=== PATIENT | female | born 1960 | race Caucasian/White ===

== ENCOUNTER → 2018-08-09 | Outpatient (CLI) | payer OTHER ==
[~2018-08-09] MED LIST: BASAGLAR K100 UNIT/1 SUBQ; CIPRO500 MG PO; FLAGYL500 MG PO; JANUVIA100 MG PO; LIPITOR 20 MG T20 M1 PO; NORCO 5-325 TA1 EACH PO; NOVOLOG100 UNIT/1 SUBQ; OMEPRAZOLE20 M1 PO; PROPRANOLOL 20M20 M1 PO; TRAMADOL 50 MG50 MG PO
--- NOTE | 2018-08-10 19:00 | SLEEP ---
[address] [address] SLEEP STUDY REPORT Name: TERRI FISCHER Room: [facility]#: [id number] Admission: 08/09/18 Attend Phys: Chirag Dent Discharge: Date of : 56 Report #: [id number] THIS REPORT FOR: //name// CC: Alicia Pillai DO This study has been reviewed in its entirety by a board certified sleep specialist DATE OF SERVICE: 08/09/2018 ATTENDING PHYSICIAN: Dr. Alicia Pillai. The patient is 58 years old who weighs 170 pounds and is 65 inches tall with a BMI of 28.3. The patient's Pomona score was 13. The patient had a previous home sleep study in 2017 and had mild OUMOU. An in-lab sleep study was ordered by primary care physician. During the night study, the patient spent 445 minutes in bed and slept for 360 minutes with a sleep efficiency of 81%. Sleep latency was 7.8 minutes with a REM latency of 82.3 minutes. Overall, sleep architecture showed normal stage I and stage II sleep, increased slow wave sleep, which was 35% of the total sleep time and normal REM sleep. During the night of the study, the patient had 1 obstructive apnea, no mixed or central apneas. There were 35 hypopneas. The patient's apnea hypopnea index was 6 per hour with a REM index of 5.2 per hour. The patient's supine AHI was 6.3 per hour. Review of nocturnal oximetry study revealed an average oxygen saturation of 94% with a lowest of 84%. 0.6 minutes were spent in oxygen saturation of less than 90%. EKG monitoring revealed normal sinus rhythm. Average heart rate was 60 beats per minute with a maximum of 76 beats per minute. PLMS were seen at an index of 60 per hour and 5.7 per hour caused EEG arousals. Due to low AHI, the patient did not meet the split night criteria for CPAP initiation. IMPRESSION: 1. Mild sleep apnea-hypopnea syndrome with an apnea-hypopnea index of 6 per hour. 2. No clinically significant nocturnal hypoxia. 3. Severe periodic limb movements in sleep at an index of 60 per hour and 5.7 [place] [address] SLEEP STUDY REPORT Name: TERRI FISCHER Room: [facility]#: [id number] Admission: 08/09/18 Attend Phys: Chirag Dent Discharge: Date of : 56 Report #: [id number] per hour caused EEG arousals. RECOMMENDATIONS: 1. The patient did not meet the criteria for CPAP initiation due to low AHI. The patient is clinically symptomatic with an Pomona score of 13. I would recommend treating the patient's sleep apnea with either oral appliance as recommended by the dentist versus a trial of CPAP titration. 2. Weight loss is advised and this can be the initial form of treatment. 3. Avoid PBX MANAGER depressants. 4. Cautioned regarding driving until symptoms of sleep apnea resolve with the above recommendations. 5. The patient should also be further evaluated for symptoms of restless legs during the day. <ELECTRONICALLY SIGNED> By: Parth Tidwell MD 08/10/18 1900 1554 1759Ahavre de grace Dmitry Tidwell MD /nt
== END ==
LOC: M.SLEEPLAB 07-09 20:00
DX: G47.34 Idiopathic sleep related nonobstructive alveolar hypoventilation (principal); E11.9 Type 2 diabetes mellitus without complications; K74.60 Unspecified cirrhosis of liver; Z79.4 Long term (current) use of insulin

== ENCOUNTER 2018-09-07 15:04 | Emergency (ER) | payer OTHER ==
[~2018-09-07] VITALS: Ht 162.6 cm; Wt 81.7 kg
[2018-09-07] MEDS ORDERED: JANUVIA100 MG PO (15:20)
[2018-09-07] MEDS ORDERED: NOVOLOG100 UNIT/1 SUBQ (15:20)
[2018-09-07] MEDS ORDERED: OMEPRAZOLE20 M1 PO (15:20)
[2018-09-07] MEDS ORDERED: BASAGLAR K100 UNIT/1 SUBQ (15:21)
[2018-09-07] MEDS ORDERED: PROPRANOLOL 20M20 M1 PO (15:21)
[2018-09-07] MEDS ORDERED: LIPITOR 20 MG T20 M1 PO (15:21)
[2018-09-07] MEDS ORDERED: TRAMADOL 50 MG50 MG PO (15:21)
[2018-09-07 15:58] LABS: ABSOLUTE BASOPHILS 0.1 thou/uL (0.0-0.2); ABSOLUTE EOSINOPHILS 0.1 thou/uL (0.0-0.7); ABSOLUTE LYMPHOCYTES 2.8 thou/uL (0.8-5.3); ABSOLUTE MONOCYTES 0.7 thou/uL (0.0-1.2); ABSOLUTE NEUTROPHILS 6.6 thou/uL (1.6-8.1); BASOPHILS 1.2 %; EOSINOPHILS 1.1 %; HEMATOCRIT 40.6 % (37.0-47.0); HEMOGLOBIN 13.7 gm/dL (12.0-15.0); LYMPHOCYTES 26.9 %; MCH 31.1 pg (26.0-34.0); MCHC 33.8 g/dL (28.0-37.0); MCV 92.1 fL (80.0-100.0); MONOCYTES 6.9 %; MPV 8.2 fl. (7.2-11.1); NUCLEATED RBCS 0 /100WBC; PLATELET COUNT* 214 thou/uL (150-400); POLYS 63.9 %; RDW-CV 13.2 % (10.5-14.5); WBC 10.3 thou/uL (4.0-11.0)
[2018-09-07 16:05] LABS: CALCIUM 8.8 mg/dL (8.5-10.1); CREATININE 0.7 mg/dL (0.6-1.3); POTASSIUM 3.7 mmol/L (3.5-5.1)
[2018-09-07 16:07] LABS: URINE BILIRUBIN NEGATIVE (Negative); URINE BLOOD NEGATIVE (Negative); URINE CLARITY CLEAR; URINE COLOR YELLOW; URINE GLUCOSE-RANDOM TRACE (Negative); URINE KETONES NEGATIVE (Negative); URINE LEUKOCYTES-REFLEX NEGATIVE (Negative); URINE NITRITE-REFLEX NEGATIVE (Negative); URINE PROTEIN NEGATIVE (Negative); URINE UROBILINOGEN 0.2 E.U./dl (0.2-1.0)
[2018-09-07 16:10] LABS: ALBUMIN 3.2 g/dL (3.4-5.0); TOTAL BILIRUBIN 0.6 mg/dL (<0.1-1.0); TOTAL PROTEIN 7.7 g/dL (6.4-8.2)
[2018-09-07] MEDS ORDERED: FLAGYL500 MG PO (17:30)
[2018-09-07] MEDS ORDERED: NORCO 5-325 TA1 EACH PO (17:30)
[2018-09-07] MEDS ORDERED: CIPRO500 MG PO (17:30)
[2018-09-07 17:50] VITALS: BP 125/84
== END 2018-09-07 17:53 | disposition home or self-care (01) ==
LOC: M.ERS 15:04
PROVIDERS: Physician Assistant
DX: K52.9 Noninfective gastroenteritis and colitis, unspecified (principal); E11.9 Type 2 diabetes mellitus without complications; K74.60 Unspecified cirrhosis of liver; Z79.4 Long term (current) use of insulin

== ENCOUNTER → 2018-12-05 | Outpatient (CLI) | payer BC | LOC: M.CT 10:28 | DX: K57.30 Diverticulosis of large intestine without perforation or abscess without bleeding (principal); R16.1 Splenomegaly, not elsewhere classified; R19.5 Other fecal abnormalities; I70.0 Atherosclerosis of aorta; Z90.49 Acquired absence of other specified parts of digestive tract ==

== ENCOUNTER → 2019-08-03 | Outpatient (CLI) | payer BC ==
[~2019-08-03] MED LIST changes: +HUMALOG100 UNIT/1 SUBQ; +HYDROCODON-ACE1 EAC7 PO; +LIPITOR10 MG PO; +OMEPRAZOLE40 MG PO; +REGLAN 5 MG TAB5 MG PO; +REQUIP 1 MG TABL1 M1 PO; +TOUJEO SOL300 UNIT/1 SUBQ
== END ==
LOC: M.ULTRA 09:46
DX: M79.662 Pain in left lower leg (principal); M79.89 Other specified soft tissue disorders

== ENCOUNTER → 2019-09-01 | Outpatient (CLI) | payer BC | LOC: M.MRI 15:57 | DX: S83.241A Other tear of medial meniscus, current injury, right knee, initial encounter (principal); X58.XXXA Exposure to other specified factors, initial encounter; Y93.89 Activity, other specified; Y92.89 Other specified places as the place of occurrence of the external cause; Y99.8 Other external cause status ==

== ENCOUNTER → 2019-09-14 | Outpatient (CLI) | payer BC | LOC: M.MRI 16:58 | DX: M25.511 Pain in right shoulder (principal); G89.29 Other chronic pain ==

== ENCOUNTER → 2019-09-15 | Day surgery (SDC) | payer BC ==
[2019-09-15 10:56] LABS: HEMATOCRIT 38.5 % (37.0-47.0); HEMOGLOBIN 13.4 gm/dL (12.0-15.0); MCH 31.9 pg (26.0-34.0); MCHC 34.8 g/dL (28.0-37.0); MCV 91.6 fL (80.0-100.0); MPV 8.5 fl. (7.2-11.1); RBC 4.21 mil/uL (4.20-5.00); RDW-CV 13.1 % (10.5-14.5); WBC 7.6 thou/uL (4.0-11.0)
[2019-09-15 11:14] LABS: CALCIUM 8.5 mg/dL (8.5-10.1); CREATININE 0.6 mg/dL (0.6-1.3); POTASSIUM 3.5 mmol/L (3.5-5.1)
[2019-09-15 11:19] LABS: TOTAL BILIRUBIN 0.7 mg/dL (<0.1-1.0); TOTAL PROTEIN 7.1 g/dL (6.4-8.2)
--- NOTE | 2019-09-15 15:52 | EKG ---
[place] [address] ELECTROCARDIOGRAM REPORT Name: TERRI FISCHER Room: [facility]#: [id number] Admission: 09/15/19 Attend Phys: Tex Mccarty DO Discharge: Date of : 56 Report #: [id number] THIS REPORT FOR: //name// [facility] Test Date: 2019-09-15 Test Time: 10:27:00 Pat Name: TERRI FISCHER Department: Room: Gender: F Machine Cell Tuber: : 1960 Requested By: Tex Mccarty Order Number: [id number] Reading MD: Ghassan Yepez Measurements Intervals [place] Rate: 63 P: 41 W[place]: 142 QRS: 6 QRSD: 102 T: 3 QT: 453 QTc: 464 Interpretive Statements Sinus rhythm Inferior infarct, old No previous ECG available for comparison Electronically Signed On 09-15-2019 15:52:24 LOG CARRIER OPERATOR by Ghassan Yepez [email or web address] <ELECTRONICALLY SIGNED> By: Ghassan Yepez MD, [facility] 09/15/19 1552 1027 1027 Ghassan Yepez MD, FACC /EPI
--- NOTE | 2019-09-26 12:03 | OP ---
[address] [address] OPERATIVE REPORT Name: TERRI FISCHER Room: [facility]#: [id number] Admission: 09/15/19 Attend Phys: Tex Mccarty DO Discharge: Date of : 56 Report #: [id number] THIS REPORT FOR: //name// CC: Tex Mccarty Alicia Pillai DATE OF SERVICE: 09/15/2019 PREOPERATIVE DIAGNOSIS: Left knee medial meniscus tear with associated subchondral insufficiency fracture of the medial plateau. POSTOPERATIVE DIAGNOSIS: Left knee medial meniscus tear with associated subchondral insufficiency fracture of the medial plateau. SURGERY PERFORMED: Left knee arthroscopic surgery with a partial posterior horn medial meniscectomy of the complex tear. She also had a medial subchondroplasty performed with the Roman bone paste. SURGEON: Tex Mccarty DO GOLF SALES MANAGER: Gurpreet Nuñez DO ANESTHESIA: General anesthetic. ANTIBIOTICS: The patient did receive Ancef 2 grams IV piggyback preoperatively. SPECIMENS: She has no specimens. COMPLICATIONS: No complications. DRAINS: No drains. ESTIMATED BLOOD LOSS: Minimal. GROSS FINDINGS: Prior to this surgery, she had an MRI correlating with the posterior horn medial meniscus tear, definitely verified arthroscopically. The small degenerative tear of lateral meniscus was seen, but it did not need anything. ACL was clinically intact and arthroscopically intact as well as by MRI. Subchondral fracture was injected and verified in AP and lateral views with the C-arm. SURGERY IN DETAIL: The patient was taken to the operating room and placed on table, given the benefits of general anesthetic, she had a well-padded tourniquet placed on the left leg, but was not needed for surgery. Surgery began at this point in time again with chlorhexidine prep and sterile draping for left knee surgery. Timeout was called and verified by [place] [address] OPERATIVE REPORT Name: TERRI FISCHER Room: [facility]#: [id number] Admission: 09/15/19 Attend Phys: Tex Mccarty DO Discharge: Date of : 56 Report #: [id number] for the left knee. At this point in time, the standard portals were made medially and laterally through that inferior lateral port hole. The arthroscope was put in the joint. I did a systematic examination, looking at patellofemoral, medial compartments as well as the lateral compartments ACL. Meniscus tear was identified using basket forceps and a shaver. It was easily resected, but there was a complex nature of the tear, at least 3 cm in length. The patient did not have any gross articular surface changes to the weightbearing portion of the knee, but did have some changes noted at patellofemoral area where she has thinning of the cartilage. Fibrillation of some of the patella was noted, but very mild. The lateral compartment was clean overall with no significant changes and ACL intact. Surgery continued after the basket forceps and shaving of the posterior horn medial meniscus. I did then remove as much water from the knee as could be. C-arm was brought into the operating area and an x-ray was taken, so we could verify the joint surface. Using the trocar needle, it was advanced into the tibial plateau medially using the C-arm for guidance in the area where the MRI shows the insufficiency fracture was and it was injected with the bone paste at this time. The patient did have photograph showing this afterwards. Surgery continued at this point in time. Then when this was completed, I put the arthroscope back in the knee joint. I looked around to make sure there was no other bone paste anywhere within the joint, there was not. We copiously irrigated again one more time, then injected the knee with 0.25% Marcaine plain, 15 mL. Closed each portal with 4-0 nylon in simple fashion. Xeroform, 4 x 4s, Kerlix, soft roll, Tawanda wrap dressing was applied, transferred off the Bronson table, taken to recovery in stable condition. Needle, instrument, sponge counts were correct. I attest I was present for all critical aspects of surgery. <ELECTRONICALLY SIGNED> By: Tex Mccarty DO 09/26/19 1203 1226 1349Tex Mccarty DO /nt
== END | disposition home or self-care (01) ==
LOC: M.SUR 05:31
PROVIDERS: Orthopaedic Surgery
DX: S83.232A Complex tear of medial meniscus, current injury, left knee, initial encounter (principal); M84.362A Stress fracture, left tibia, initial encounter for fracture; E78.00 Pure hypercholesterolemia, unspecified; Z98.890 Other specified postprocedural states; Z79.899 Other long term (current) drug therapy; Z90.710 Acquired absence of both cervix and uterus; Z87.19 Personal history of other diseases of the digestive system; Z87.891 Personal history of nicotine dependence; X58.XXXA Exposure to other specified factors, initial encounter; Y93.89 Activity, other specified; Y92.89 Other specified places as the place of occurrence of the external cause; Y99.8 Other external cause status

== ENCOUNTER → 2019-10-20 | Outpatient (CLI) | payer BC | END | disposition home or self-care (01) | LOC: M.RAD 14:23 | DX: M25.511 Pain in right shoulder (principal); M75.121 Complete rotator cuff tear or rupture of right shoulder, not specified as traumatic; E11.65 Type 2 diabetes mellitus with hyperglycemia; Z98.890 Other specified postprocedural states; Z79.899 Other long term (current) drug therapy; Z79.4 Long term (current) use of insulin ==

== ENCOUNTER → 2019-10-25 | Outpatient (CLI) | payer OTHER | LOC: M.CT 12:55 | DX: Z13.6 Encounter for screening for cardiovascular disorders (principal) ==

== ENCOUNTER → 2020-05-23 | Outpatient (CLI) | payer BC ==
[~2020-05-23] MED LIST changes: +ASPIR 8181 M1 PO; +LINZESS145 MCG PO; +METFORMIN HCL500 M3 PO; +ROXICODONE5 MG PO
== END ==
LOC: M.LAB 09:15
PROVIDERS: ATTEND Orthopaedic Surgery
DX: Z01.818 Encounter for other preprocedural examination (principal); Z11.59 Encounter for screening for other viral diseases

== ENCOUNTER → 2020-05-28 | Day surgery (SDC) | payer BC ==
[2020-05-28 11:13] LABS: HEMATOCRIT 35.7 % (37.0-47.0); HEMOGLOBIN 12.4 gm/dL (12.0-15.0); MCH 30.5 pg (26.0-34.0); MCHC 34.6 g/dL (28.0-37.0); MCV 88.3 fL (80.0-100.0); MPV 8.6 fl. (7.2-11.1); RBC 4.04 mil/uL (4.20-5.00); RDW-CV 13.5 % (10.5-14.5); WBC 7.2 thou/uL (4.0-11.0)
[2020-05-28 11:26] LABS: CALCIUM 8.8 mg/dL (8.5-10.1); CREATININE 0.7 mg/dL (0.6-1.3)
[2020-05-28 11:30] LABS: ALBUMIN 3.1 g/dL (3.4-5.0); TOTAL BILIRUBIN 0.6 mg/dL (<0.1-1.0); TOTAL PROTEIN 7.9 g/dL (6.4-8.2)
--- NOTE | 2020-05-28 12:28 | EKG ---
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
--- NOTE | 2020-05-31 11:30 | OP ---
[address] [address] OPERATIVE REPORT Name: TERRI FISCHER Room: [facility]#: [id number] Admission: 05/28/20 Attend Phys: Tex Mccarty DO Discharge: Date of : 56 Report #: [id number] THIS REPORT FOR: //name// cc: Alicia Pillai Linda J. DO ~ THIS REPORT FOR: //name// CC: Tex Pillai DATE OF SERVICE: 05/28/2020 PREOPERATIVE DIAGNOSIS: Rotator cuff tear of the right shoulder. POSTOPERATIVE DIAGNOSIS: A 3 cm rotator cuff tear of the right shoulder, supraspinatus. SURGERY PERFORMED: Arthroscopic right shoulder rotator cuff repair with a decompression and biceps tenotomy. SURGEON: Tex Mccarty DO. DERMATOLOGY TECHNICIAN: Dr. Tirado. ANESTHESIA: General anesthetic. The patient did receive local anesthetic 0.5% plain Marcaine with epinephrine following surgery 20 mL. SPECIMENS: None. COMPLICATIONS: None. ESTIMATED BLOOD LOSS: 25 mL. GROSS FINDINGS: Prior to surgery, a past MRI in 09/2019 revealed a rotator cuff tear. Due to the COVID crisis, the patient could not be scheduled for surgery until today. Her intraoperative findings correlated rather a large 3 cm rotator cuff tear as stated above, the biceps was significantly frayed. She had some early chondromalacia changes in the humeral head and glenoid. The patient had fibrotic scarring in subacromial space as well. The patient's post-cuff repair demonstrated a good stable cuff, photographs correlate with that as well. SURGERY IN DETAIL: The patient was taken to the operating room and placed on the table, given the benefit of the general anesthetic. She did get put in a beach chair and positioned then. The patient underwent a chlorhexidine prep and sterile draping for right shoulder surgery. Surgery began with making a posterior portal incision with a 15 blade scalpel. [place] [address] OPERATIVE REPORT Name: TERRI FISCHER Shyam Room: [facility].#: [id number] Admission: 05/28/20 Attend Phys: Tex Mccarty DO Discharge: Date of : 56 Report #: [id number] glenohumeral joint. Examination was begun with findings as stated above. I made an anterior portal next with a spinal needle for verification. Shaver and the scissors were used to complete the biceps tenotomy and then I totally decompressed the glenohumeral joint from scar tissue and the tear was easily visualized. At this point in time, I now went subacromially and through a lateral small portal incision. I did go ahead and finish a decompression of the subacromial space, so we could see better. She had significant fibrotic scarring throughout that entire area. Once we did that, the cuff tear was visualized. I did a SpeedBridge fixation to fix this back in place, but I had to use a 5.5 as one of the anchors as she has had some softening of the bone. Post-repair demonstrated a good stable repair through the arc of motion. Portal sites were closed with 3-0 nylon in simple fashion. We injected the shoulder as stated above, she was put in a PolarCare and a sling dressing, transferred off the table and taken to recovery in stable condition. I attest I was present for all critical aspects of surgery. Needle, instrument, sponge counts correct. <ELECTRONICALLY SIGNED> By: Tex Mccarty DO 05/31/20 1130 1307 1327Tex Mccarty DO /deborah
== END | disposition home or self-care (01) ==
LOC: M.SUR 09:46
PROVIDERS: ATTEND Orthopaedic Surgery
DX: M75.101 Unspecified rotator cuff tear or rupture of right shoulder, not specified as traumatic (principal); S46.211A Strain of muscle, fascia and tendon of other parts of biceps, right arm, initial encounter; D64.9 Anemia, unspecified; I10 Essential (primary) hypertension; E11.9 Type 2 diabetes mellitus without complications; E78.5 Hyperlipidemia, unspecified; K74.60 Unspecified cirrhosis of liver; K21.9 Gastro-esophageal reflux disease without esophagitis; Z98.890 Other specified postprocedural states; Z79.899 Other long term (current) drug therapy; Z79.4 Long term (current) use of insulin; Z96.659 Presence of unspecified artificial knee joint; Z90.710 Acquired absence of both cervix and uterus; Z86.73 Personal history of transient ischemic attack (TIA), and cerebral infarction without residual deficits; X58.XXXA Exposure to other specified factors, initial encounter; Y93.89 Activity, other specified; Y92.89 Other specified places as the place of occurrence of the external cause; Y99.8 Other external cause status

== ENCOUNTER 2020-05-30 14:31 | Inpatient (IN) | payer BC ==
[~2020-05-30] VITALS: Ht 170.2 cm; Wt 88.0 kg
--- NOTE | ~2020-05-30 | CON ---
[address] [address] CONSULTATION Name: TERRI FISCHER Room: [address] [place] .R.#: [id number] Admission: 05/30/20 Attend Phys: Pietro Mckeon MD Discharge: Date of : 56 Report #: [id number] THIS REPORT FOR: //name// cc: Alicia Pillai Linda J. DO ~ THIS REPORT FOR: //name// CC: Tex Pillai DO DICTATED BY: Adeline Nolan [facility] DATE OF SERVICE: 05/31/2020 Please note at the time of this dictation, the patient was seen and physically examined by myself. REASON FOR CONSULTATION: Hematemesis. HISTORY OF PRESENT ILLNESS: This is a 60-year-old female presented to the Emergency Room with noticing that yesterday she had a melanotic stool and has had numerous ones and then she started feeling very queasy and vomited up some bright red blood. The patient states she had rotator cuff surgery on her right side on Wednesday, was taking the pain pills. She started feeling nauseous on Wednesday, which continued, but did not notice the stool or the vomiting until later that day. The patient states she has stage 4 cirrhosis and she was told it was related to a fatty liver, so likely she has nonalcoholic fatty liver disease. It appears she has been on propranolol with a history of varices in the past along with acid reflux, which she is on omeprazole for. She has never had any bleeding noted before. She states her last scope that she can remember her upper was about a year and a half. She gets those every 2 years and colonoscopy, she has had in the past, but does not recall what the findings were. We will obtain those records from Dr. Garcia's office BR[facility]. The patient only takes a baby aspirin at home. Denies any anticoagulant therapy and any NSAID use since surgery. ALLERGIES: No known drug allergies. MEDICATIONS: From home include Januvia, propranolol, Lipitor, omeprazole, Requip, insulin, NovoLog, Humalog, Linzess, metformin, baby aspirin, and oxycodone. PAST MEDICAL HISTORY: Stage IV cirrhosis related to [place] [address] CONSULTATION Name: AALIYAHWINNIEDEB Howe Room: [address]#: [id number] Admission: 05/30/20 Attend Phys: Pietro Mckeon MD Discharge: Date of : 56 Report #: [id number] disease, esophageal varices, diverticulosis and diabetes. PAST SURGICAL HISTORY: Recent right rotator cuff repair. FAMILY HISTORY: Negative for any GI or female cancers. SOCIAL HISTORY: Alcohol use in the past, not quantified. Tobacco, none and denies any illegal drug use. PHYSICAL EXAMINATION: VITAL SIGNS: Temperature 37.1, pulse 76, respirations 16, blood pressure 91/43. She was in the 120s/80s on admission. LABORATORY DATA: Hemoglobin on admission was 13.7, she is down to 8.8; white count was 14.1, she is down to 11; platelets 154. BUN was 14 on admission. GFR is 73. Total bilirubin is 0.7, alkaline phosphatase 133, ALT 33, AST is 39. CT abdominal wall thickness of the ascending colon, otherwise negative. IMPRESSION: 1. Gastrointestinal bleed, upper. 2. Melanotic stool. 3. Nonalcoholic fatty liver disease. 4. Acute anemia. 5. History of esophageal varices. PLAN: 1. EGD today with Dr. Huffman with possible banding. 2. Further recommendations to be made once the procedure has been performed. Thank you for allowing us to participate in this patient's care. Please do not hesitate to call with any questions in regard to this consult. By: 1028 1109Vasiliy Huffman MD /nt
[2020-05-30 14:45] VITALS: BP 93/51
[2020-05-30 15:28] LABS: ABSOLUTE BASOPHILS 0.1 thou/uL (0.0-0.2); ABSOLUTE EOSINOPHILS 0.1 thou/uL (0.0-0.7); ABSOLUTE LYMPHOCYTES 2.9 thou/uL (0.8-5.3); ABSOLUTE MONOCYTES 1.1 thou/uL (0.0-1.2); BASOPHILS 0.5 %; EOSINOPHILS 0.9 %; HEMATOCRIT 30.5 % (37.0-47.0); LYMPHOCYTES 20.2 %; MCH 29.9 pg (26.0-34.0); MCHC 33.3 g/dL (28.0-37.0); MCV 89.7 fL (80.0-100.0); MONOCYTES 7.7 %; MPV 9.4 fl. (7.2-11.1); NUCLEATED RBCS 0 /100WBC; PLATELET COUNT* 227 thou/uL (150-400); POLYS 70.7 %; RDW-CV 13.4 % (10.5-14.5); WBC 14.1 thou/uL (4.0-11.0)
[2020-05-30 15:30] LABS: HEMOGLOBIN 10.2 gm/dL (12.0-15.0)
[2020-05-30 15:33] LABS: CALCIUM 8.1 mg/dL (8.5-10.1); CREATININE 0.9 mg/dL (0.6-1.3); POTASSIUM 4.5 mmol/L (3.5-5.1)
[2020-05-30 15:38] LABS: ALBUMIN 2.8 g/dL (3.4-5.0); TOTAL BILIRUBIN 0.5 mg/dL (<0.1-1.0); TOTAL PROTEIN 6.9 g/dL (6.4-8.2)
[2020-05-30 16:00] LABS: URINE BILIRUBIN NEGATIVE (Negative); URINE BLOOD NEGATIVE (Negative); URINE CLARITY CLEAR; URINE COLOR YELLOW; URINE GLUCOSE-RANDOM NEGATIVE (Negative); URINE KETONES NEGATIVE (Negative); URINE LEUKOCYTES-REFLEX NEGATIVE (Negative); URINE NITRITE-REFLEX NEGATIVE (Negative); URINE PROTEIN NEGATIVE (Negative); URINE UROBILINOGEN 0.2 E.U./dl (0.2-1.0)
[2020-05-30 16:08] LABS: AMP/METHAMP Negative (Negative); BARBITURATES Negative (Negative); BENZODIAZEPINES Negative (Negative); COCAINE Negative (Negative); METHADONE Negative (Negative); OPIATES Negative (Negative); PCP Negative (Negative); THC Negative (Negative)
[2020-05-30 16:45] LABS: INR 1.1; PROTIME 11.3 Seconds (9.20-11.50)
--- NOTE | 2020-05-30 17:40 | EKG ---
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: [facility] : 1960 Requested By: Moraima Ayala Order Number: [id number] MD: Alejandro Harrington Measurements Intervals [place] Rate: 73 P: 42 [place]: 132 QRS: 19 QRSD: 102 T: 10 QT: 420 QTc: 463 Interpretive Statements Sinus rhythm Consider inferior infarct Compared to ECG 05/28/2020 11:03:31 No significant changes Electronically Signed On 05-30-2020 17:40:12 CDT by Alejandro Harrington [email or web address] <ELECTRONICALLY SIGNED> By: Alejandro Harrington MD, FACC 05/30/20 1740 1515 1515 Alejandro Harrington MD, [facility] /EPI
[2020-05-30 18:11] VITALS: BP 131/63
[2020-05-30 19:00] VITALS: BP 125/53
[2020-05-30 20:49] LABS: HEMATOCRIT 28.8 % (37.0-47.0); HEMOGLOBIN 9.8 gm/dL (12.0-15.0)
[2020-05-31] VITALS (32 sets, daily range): BP systolic 89–171; BP diastolic 33–128
[2020-05-31 04:58] LABS: HEMATOCRIT 25.1 % (37.0-47.0); HEMOGLOBIN 8.8 gm/dL (12.0-15.0); MCH 31.1 pg (26.0-34.0); MCHC 34.9 g/dL (28.0-37.0); MCV 89.2 fL (80.0-100.0); MPV 9.2 fl. (7.2-11.1); RBC 2.81 mil/uL (4.20-5.00); RDW-CV 13.2 % (10.5-14.5)
[2020-05-31 05:08] LABS: CALCIUM 7.8 mg/dL (8.5-10.1); CREATININE 0.8 mg/dL (0.6-1.3)
[2020-05-31 05:12] LABS: ALBUMIN 2.6 g/dL (3.4-5.0); MAGNESIUM 1.7 mg/dL (1.8-2.4); TOTAL BILIRUBIN 0.7 mg/dL (<0.1-1.0); TOTAL PROTEIN 6.2 g/dL (6.4-8.2)
[2020-05-31 05:13] LABS: POTASSIUM 3.5 mmol/L (3.5-5.1)
--- NOTE | 2020-05-31 10:03 | NUR ---
CM SPOKE TO THE PT TO DISCUSS HER HOME SITUTATION, DISCHARGE PLANNNING, AND TO INFORM OF THE ROLE OF CM. PT A&O, INDEPENDENT WITH ADL'S, AND DRIVES. PT RESIDES AT HOME WITH DTR. PT OWNS O2 CONCENTRATOR, AND USES 2L O2 AT [facility]. PT HAS 0 HX OF HH OR SNF. PT PLANS TO RETURN HOME AT D/C. D/C PLANNING NEEDS TO BE DETERMINED. CM WILL REMAIN AVAILABLE TO ASSIST AND FOLLOW NEEDED.
--- NOTE | 2020-05-31 13:25 | NUR ---
LEFT BASILIC VESSEL ACCESSED FOR 5 INDONESIAN DUAL LUMEN POWER PICC. LINE PRE-TRIMMED TO 42CM AND ADVANCED TO THE ZERO MADAI WITH NO RESISTANCE MET. UPPER ARM CIRCUMFERENCE ABOVE INSERTION SITE= 11". SHERLOCK MAGNET AND 3CG CONFIRMATION OF TIP TERMINATION AT THE CAVOATRIAL JUNCTION APPRECIATED. GUIDE WIRE REMOVED LINE FLUSHED AND INSERTION SITE DRESSED. REPORT GIVEN TO ADRIAN JUAREZ.
--- NOTE | 2020-05-31 16:56 | NUR ---
RECEIVED REPORT FROM MARI JUAREZ AND ASSUMED CARE OF PT @ 1038.PT IS A/O X4,BP SOFT IN THE LOW 100s-ORDERS RECEIVED FOR 1L NS BOLUS AND 1 UNIT OF BLOOD.BP STABILIZED AFTER GIVEN.PT PLACED ON 2L O2 NC WHILE SLEEPING.PICC PLACED IN LEFT UPPER ARM BY ROXANNE THE PICC RN-EKG CONFIRMATION BY ROXANNE AND GIVEN OK TO USE.EGD COMPLETED WITH BANDING INTERVENTION.PAIN MANAGED WELL WITH IV MEDICATIONS.WILL CONTINUE TO MONITOR FOR DURATION OF SHIFT.
[2020-05-31 19:08] LABS: ABSOLUTE BASOPHILS 0.1 thou/uL (0.0-0.2); ABSOLUTE EOSINOPHILS 0.2 thou/uL (0.0-0.7); ABSOLUTE LYMPHOCYTES 2.5 thou/uL (0.8-5.3); ABSOLUTE MONOCYTES 0.5 thou/uL (0.0-1.2); ABSOLUTE NEUTROPHILS 8.2 thou/uL (1.6-8.1); BASOPHILS 1.2 %; EOSINOPHILS 1.7 %; HEMATOCRIT 26.9 % (37.0-47.0); HEMOGLOBIN 8.9 gm/dL (12.0-15.0); LYMPHOCYTES 21.9 %; MCH 29.5 pg (26.0-34.0); MCHC 33.1 g/dL (28.0-37.0); MCV 89.1 fL (80.0-100.0); MONOCYTES 4.6 %; MPV 8.6 fl. (7.2-11.1); NUCLEATED RBCS 0 /100WBC; PLATELET COUNT* 157 thou/uL (150-400); POLYS 70.6 %; RBC 3.02 mil/uL (4.20-5.00); RDW-CV 14.8 % (10.5-14.5); WBC 11.6 thou/uL (4.0-11.0)
[2020-06-01] VITALS (14 sets, daily range): BP systolic 113–154; BP diastolic 16–76
--- NOTE | 2020-06-01 04:50 | NUR ---
ASSUMED PATIENT CARE AT 1900. ASSESSMENTS COMPLETED CHARTED. CARDIAC MONITORING IN PLACE. FALL PRECAUTIONS IN PLACE FOR PATIENT SAFETY. BED LOCKED AND IN LOWEST POSITION. CLWR.
[2020-06-01 05:53] LABS: ABSOLUTE EOSINOPHILS 0.2 thou/uL (0.0-0.7); ABSOLUTE LYMPHOCYTES 2.8 thou/uL (0.8-5.3); ABSOLUTE MONOCYTES 0.8 thou/uL (0.0-1.2); BASOPHILS 0.4 %; EOSINOPHILS 1.2 %; HEMATOCRIT 22.8 % (37.0-47.0); HEMOGLOBIN 7.8 gm/dL (12.0-15.0); LYMPHOCYTES 20.5 %; MCH 30.1 pg (26.0-34.0); MCHC 34.1 g/dL (28.0-37.0); MCV 88.3 fL (80.0-100.0); MONOCYTES 5.8 %; MPV 8.5 fl. (7.2-11.1); NUCLEATED RBCS 0 /100WBC; PLATELET COUNT* 141 thou/uL (150-400); POLYS 72.1 %; RBC 2.59 mil/uL (4.20-5.00); RDW-CV 14.2 % (10.5-14.5); WBC 13.8 thou/uL (4.0-11.0)
[2020-06-01 17:45] LABS: HEMATOCRIT 22.3 % (37.0-47.0); HEMOGLOBIN 7.6 gm/dL (12.0-15.0)
--- NOTE | 2020-06-01 18:08 | NUR ---
PATIENT PROGRESSING WELL TOWARDS GOALS. DID HAVE 2 DARK RED STOOLS. H&H RECHECKED AND REMAINS STABLE. NO VOMITTING OF BLOODY CONTENTS. TELE STATUS. SELF CARE SPONGE BATH COMPLETED AND PATIENT STATES SHE FEELS MUCH BETTER. ABLE TO GET UP WITH STANDBY ASSIST DUE TO CORDS. MULTIPLE DOSES OF PAIN MEDICATION GIVEN THIS SHIFT, SEE EMAR FOR DOSES AND TIMES. NO PAIN, NAUSEA OR SHORTENSS OF AIR AT THIS TIME. SITTING UP EATING DINNER. BED IN LOWEST POSITION, CALL LIGHT IN REACH, CARDIAC MONTIOR IN PLACE.
[2020-06-02 04:04] VITALS: BP 99/45
--- NOTE | 2020-06-02 05:46 | NUR ---
PT. DID NOT SLEEP WELL THIS SHIFT, UP MOST OF SHIFT, CLOSED EYES FOR APPROX 20 MIN. C/O PAIN THROUGHOUT SHIFT, MULTIPLE MORPHINE DOSES GIVEN PER PRN ORDER, SEE EMAR. PT. UP TO C SBA. 1 LOOSE, UNFORMED DARK MAROON STOOL WITH CLOTS THIS SHIFT. PT. STATES THAT WHEN SHE EATS OR DRINKS IT "SCRATCHES HER THROAT". OCTREATIDE AND PROTONIX GTT'S REMAIN INFUSING. CALL LIGHT REMAINS IN REACH, WILL CONTINUE TO MONITOR.
[2020-06-02 08:13] VITALS: BP 144/58
[2020-06-02 16:07] VITALS: BP 140/77
--- NOTE | 2020-06-02 16:33 | NUR ---
I ASSUMED CARE OF THE PATIENT AT 0700. SHE IS ALERT AND ORIENTED X4 AND IS UP WITH STANDBY ASSIST. BED IS IN THE LOW LOCKED POSITION AND CALL LIGHT IS IN REACH. HOURLY ROUNDING IS COMPLETED AND PATIENT NEEDS ARE MET. PAIN IS MANAGED WITH PRN MEDS. SHE HAD A BOWEL MOVEMENT T-1 WITH SOME BLOOD IN THE STOOL AND USES THE COMMODE TO VOID. PATIENT CLAIMS THAT IS IT 'SCRATCHY' TO SWALLOW EVEN DRINKS OF WATER. SHOULDER PRECAUTIONS ARE STILL BEING TAKEN ON THE RIGHT SHOULDER FROM SURGERY LAST WEDNESDAY. BLOOD SUGAR IS MONITORED AND INSULIN IS NOT NEEDED. LABS ARE MONITORED WELL. VITALS ARE RECORDED AND REPORT WAS CALLED TO JJ AT 1630 ON TELE AND THE PATIENT WAS TRANSFERED UP TO 226.
--- NOTE | 2020-06-02 18:48 | NUR ---
CJ ARRIVED FROM ICU. ORIENTED TO ROOM. PAIN ASSESSED AND MORPIHINE GIVEN. VSS. HOULRY ROUNDING COMPLETEED FOR PATIENT SAFETY.
[2020-06-02 20:10] VITALS: BP 124/61
[2020-06-03] VITALS (7 sets, daily range): BP systolic 105–151; BP diastolic 35–73
[2020-06-03 04:26] LABS: ABSOLUTE EOSINOPHILS 0.2 thou/uL (0.0-0.7); ABSOLUTE LYMPHOCYTES 1.5 thou/uL (0.8-5.3); ABSOLUTE MONOCYTES 0.7 thou/uL (0.0-1.2); ABSOLUTE NEUTROPHILS 5.9 thou/uL (1.6-8.1); BASOPHILS 0.3 %; EOSINOPHILS 1.9 %; LYMPHOCYTES 17.6 %; MCH 30.8 pg (26.0-34.0); MCHC 34.6 g/dL (28.0-37.0); MCV 89.1 fL (80.0-100.0); MONOCYTES 8.7 %; MPV 8.2 fl. (7.2-11.1); NUCLEATED RBCS 0 /100WBC; PLATELET COUNT* 123 thou/uL (150-400); POLYS 71.5 %; RDW-CV 14.1 % (10.5-14.5); WBC 8.3 thou/uL (4.0-11.0)
--- NOTE | 2020-06-03 04:31 | NUR ---
ASSUMED CARE AT 1910H, ON NC AT 2LPM AT BEDTIME AND TOLERATED. SEEN ON BED CALM WITH RIGHT ARM SLING WITH PROYONIX AND OCTREOTIDE DRIPS. COMPLAINED WITH PAIN, PRN MED GIVEN. NO DISTRESS NOTED. NO HEMATEMESIS AND NO BM FOR MY SHIFT. CONTINUE MONITORING AND TOWARD GOALS.
[2020-06-03 04:47] LABS: ALBUMIN 2.3 g/dL (3.4-5.0); CREATININE 0.7 mg/dL (0.6-1.3); POTASSIUM 3.3 mmol/L (3.5-5.1); TOTAL BILIRUBIN 0.7 mg/dL (<0.1-1.0); TOTAL PROTEIN 5.6 g/dL (6.4-8.2)
[2020-06-03 05:30] LABS: HEMATOCRIT 19.6 % (37.0-47.0); HEMOGLOBIN 6.8 gm/dL (12.0-15.0)
--- NOTE | 2020-06-03 11:09 | NUR ---
SW continuing to follow to assist with safe dc planning. Pt plan to home with dtr, has supplemental oxygen, no CM needs expressed. Pt need GI clearance prior to dc. SW to remain available to assist with safe dc planning if needs arise.
--- NOTE | 2020-06-03 18:00 | NUR ---
RECEIVED REPORT. ASSUMED CARE OF PT AROUND 0730. PT A&O X4. AM ASSESSMENT AND VITALS COMPLETED CHARTED. HARDWARE DEVELOPER IN PLACE. MEDS PER EMAR. PT RECEIVED 1 UNIT PRBCS THIS SHIFT. HGB WNL NOW. PT WITH TARRY BM X2 TODAY - GI NOTIFED AND ORDERS RECEIVED FOR PT TO BE NPO. PT RECEIVED IV PAIN MEDICATION FOR COMPLAINT OF PAIN IN RIGHT SHOULDER FROM RECENT SHOULDER SX. PT UP OFTEN TO VOID. PT HOPEFULL TO GO HOME TOMORROW OR THE NEXT DAY. PT CURRENTLY RESTING IN BED. CALL LIGHT IS WITHIN REACH. HOURLY ROUNDING PERFORMED.
[2020-06-03 18:25] LABS: HEMATOCRIT 23.5 % (37.0-47.0); HEMOGLOBIN 8.1 gm/dL (12.0-15.0)
[2020-06-04] VITALS (7 sets, daily range): BP systolic 108–144; BP diastolic 37–68
[2020-06-04 05:44] LABS: HEMATOCRIT 22.5 % (37.0-47.0); HEMOGLOBIN 7.8 gm/dL (12.0-15.0); MCH 30.8 pg (26.0-34.0); MCHC 34.6 g/dL (28.0-37.0); MCV 88.8 fL (80.0-100.0); MPV 8.8 fl. (7.2-11.1); RBC 2.54 mil/uL (4.20-5.00); RDW-CV 14.5 % (10.5-14.5)
--- NOTE | 2020-06-04 16:02 | NUR ---
Pt to have EGD today. Has home oxygen already. Possible for pt to dc home with dtr tomorrow. No CM needs anticipated at this time; SW to remain available to assist with safe dc planning if needs arise.
[2020-06-05] VITALS: BP 144/59
[2020-06-05 04:00] VITALS: BP 119/59
[2020-06-05 06:55] LABS: ABSOLUTE EOSINOPHILS 0.2 thou/uL (0.0-0.7); ABSOLUTE LYMPHOCYTES 1.7 thou/uL (0.8-5.3); ABSOLUTE MONOCYTES 0.6 thou/uL (0.0-1.2); ABSOLUTE NEUTROPHILS 4.5 thou/uL (1.6-8.1); BASOPHILS 0.7 %; EOSINOPHILS 3.3 %; HEMATOCRIT 24.7 % (37.0-47.0); HEMOGLOBIN 8.5 gm/dL (12.0-15.0); LYMPHOCYTES 24.4 %; MCH 30.6 pg (26.0-34.0); MCHC 34.3 g/dL (28.0-37.0); MONOCYTES 8.8 %; MPV 8.1 fl. (7.2-11.1); NUCLEATED RBCS 0 /100WBC; PLATELET COUNT* 186 thou/uL (150-400); POLYS 62.8 %; RBC 2.78 mil/uL (4.20-5.00); RDW-CV 14.4 % (10.5-14.5); WBC 7.1 thou/uL (4.0-11.0)
[2020-06-05 07:15] LABS: CALCIUM 7.6 mg/dL (8.5-10.1); CREATININE 0.6 mg/dL (0.6-1.3); POTASSIUM 3.4 mmol/L (3.5-5.1)
--- NOTE | 2020-06-05 07:40 | NUR ---
Pt alert and oriented. VSS on RA. Meds given per emar. Pt had morphine x2 for pain. Pt voiced having bm x4 yesterday. Pt anticipating dc to home today. Call light within reach. Will continue to monitor.
[2020-06-05 08:00] VITALS: BP 144/71
[2020-06-05 11:11] VITALS: BP 144/71
[2020-06-05 11:48] VITALS: BP 144/71
--- NOTE | 2020-06-05 11:50 | NUR ---
Pt discharging to home today, CM faxed HH orders to [facility]
[2020-06-05 12:00] VITALS: BP 114/44
--- NOTE | 2020-06-05 16:00 | NUR ---
ASSUMED PT CARE AT 0730. ASSESSMENT COMPLETED CHARTED. ABLE TO MAKE NEEDS KNOWN. RESTING IN BED MOST OF THE DAY. ARM SLING IN PLACE ON RIGHT ARM. C/O PAIN AND GAVE PRN PAIN MEDICATION. DISCHARGE APPROVED AND WENT OVER WITH PT AFTER A COUPLE OF TESTS TO CHECK FOR REASONING BEHIND SHORTNESS OF BREATH. TESTS CAME BACK NEGATIVE. UP AD MESSI. PT LEFT TO FRIENDS CAR AROUND 1600 TO HOME WITH HOME HEALTH. NO COMMENTS, QUESTIONS, OR CONCERNS NOTED.
--- NOTE | 2020-06-05 16:07 | NUR ---
SW spoke with pt about dc home with dtr today and recommendation for HH services and pt was in agreement with plan. Pt expressed HH preference of [facility] and SW, Bikendra faxed referral and orders to [facility] for SW.
== END 2020-06-05 16:00 | disposition home health service (06) | DRG 368 ==
LOC: M.ERS 14:31 → M.2W 16:20 → M.TBA-ER 16:20 → M.ICU 16:20 → M.ORTHSURG 18:44 → M.ICU 05-31 10:35 → M.2W 06-02 16:43
PROVIDERS: Family Medicine; Internal Medicine; Internal Medicine Gastroenterology; Nurse Practitioner Adult Health; Nurse Practitioner Family; ADMIT Internal Medicine; ATTEND Internal Medicine
PROC: 05HY33Z Insertion of Infusion Device into Upper Vein, Percutaneous Approach (ICD-10-PCS; principal; 2020-05-31)
PROC: 30233N1 Transfusion of Nonautologous Red Blood Cells into Peripheral Vein, Percutaneous Approach (ICD-10-PCS; principal; 2020-05-31)
PROC: 06L38CZ Occlusion of Esophageal Vein with Extraluminal Device, Via Natural or Artificial Opening Endoscopic (ICD-10-PCS; principal; 2020-05-31)
PROC: 0DJ08ZZ Inspection of Upper Intestinal Tract, Via Natural or Artificial Opening Endoscopic (ICD-10-PCS; 2020-06-04)
DX: I85.11 Secondary esophageal varices with bleeding (principal); K57.11 Diverticulosis of small intestine without perforation or abscess with bleeding; K76.6 Portal hypertension; E11.9 Type 2 diabetes mellitus without complications; D64.89 Other specified anemias; K52.9 Noninfective gastroenteritis and colitis, unspecified; K76.0 Fatty (change of) liver, not elsewhere classified; K74.60 Unspecified cirrhosis of liver; D72.829 Elevated white blood cell count, unspecified; M19.011 Primary osteoarthritis, right shoulder; Z20.828 Contact with and (suspected) exposure to other viral communicable diseases; K31.89 Other diseases of stomach and duodenum; I95.9 Hypotension, unspecified; Z79.82 Long term (current) use of aspirin; Z79.899 Other long term (current) drug therapy